=== PATIENT | male | born 1995 | race Caucasian/White ===

== ENCOUNTER 2017-07-30 08:03 | Emergency (ER) | payer SELFPAY ==
--- NOTE | 2017-07-30 08:55 | Emergency Department Record ---
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 chief complaint: Foreign body Onset/Timin -: Hour(s) Onset Description: Sudden Location: Right eye Place: Work If Injury: Occurred while hammering/grinding Eye Symptoms: Pain, Photophobia, Redness Severity scale (1-10): 4 If Pain, Quality: Sharp Consistency: Constant Context: Trauma Treatments Prior to Arrival: Irrigated eye - Related Data Hx Tetanus Toxoid Vaccination: Yes Year of Tetanus Vaccination: 2017 Patient Tetanus UTD (within 5 yrs): Yes Previous Rx's Medication Instructions Recorded Hydrocodone/Acetaminophen [[place] 1 each PO Q6HR #10 tablet 07/30/17 5-325 Tablet] Sulfacetamide Sodium [Bleph10] 1 - 2 drop AFFEYE QID #15 ml 07/30/17 Allergies Allergy/AdvReac Type Severity Reaction Status Date / Time No Known Drug Allergies Allergy Verified 07/30/17 08:13 Travel Screening - Travel/Exposure Within Last 30 Days Have you traveled within the last 30 days?: No - Travel/Exposure Within Last Year Have you traveled outside the [place] in the last year?: No - Additonal Travel Details Have you been exposed to anyone with a communicable illness?: No - Travel Symptoms Symptom Screening: None Review of Systems Reviewed: No additional complaints except as noted below Constitutional: Reports: As per HPI. Denies: Chills, Fever, Malaise, Night sweats, Weakness, Weight change Eyes: Reports: As per HPI. Denies: Eye discharge, Eye pain, Photophobia, Vision change ENT: Reports: As per HPI. Denies: Congestion, Dental pain, Ear pain, Epistaxis , Hearing loss, Throat pain Respiratory: Reports: As per HPI. Denies: Cough, Dyspnea, Hemoptysis, Stridor, Wheezes Cardiovascular: Reports: As per HPI. Denies: Arrhythmia, Chest pain, Dyspnea on exertion, Edema, Murmurs, Orthopnea, Palpitations, Paroxysmal nocturnal dyspnea, Rheumatic Fever, Syncope Endocrine: Reports: As per HPI. Denies: Fatigue, Heat or cold intolerance, Polydipsia, Polyuria Gastrointestinal: Reports: As per HPI. Denies: Abdominal pain, Constipation, Diarrhea, Hematemesis, Hematochezia, Melena, Nausea, Vomiting Genitourinary: Reports: As per HPI. Denies: Dysuria, Frequency, Hematuria, Incontinence, Retention, Testicular pain, Testicular mass, Urgency Musculoskeletal: Reports: As per HPI. Denies: Arthralgia, Back pain, Gout, Joint swelling, Myalgia, Neck pain Skin: Reports: As per HPI. Denies: Bruising, Change in color, Change in hair/ nails, Lesions, Pruritus, Rash Neurological: Reports: As per HPI. Denies: Abnormal gait, Confusion, Headache, Numbness, Paresthesias, Seizure, Tingling, Tremors, Vertigo, Weakness Psychiatric: Reports: As per HPI. Denies: Anxiety, Auditory hallucinations, Depression, Homicidal thoughts, Suicidal thoughts, Visual hallucinations Hematological/Lymphatic: Reports: As per HPI. Denies: Anemia, Blood Clots, Easy bleeding, Easy bruising, Swollen glands Past Medical History - SOCIAL HISTORY Smoking Status: Never smoker Alcohol Use: Occasional Drug Use: Occasional Drug Use Detail:: Marijuana - RESPIRATORY Hx Respiratory Disorders: No - CARDIOVASCULAR Hx Cardio Disorders: No - NEURO Hx Neuro Disorders: No - GI Hx GI Disorders: No - Hx Genitourinary Disorders: No - ENDOCRINE Hx Endocrine Disorders: No - MUSCULOSKELETAL Hx Musculoskeletal Disorders: No - PSYCH Hx Psych Problems: No - HEMATOLOGY/ONCOLOGY Hx Hematology/Oncology Disorders: No Family Medical History Any Significant Family History?: Yes Hx Heart Disease: Father, Grandparents Physical Exam - General General Appearance: Alert, Oriented x3, Cooperative, No acute distress - Head Head exam: Normal inspection - Eye Eye exam: Normal appearance, PERRL, Conjunctival injection, EOMI, Other (metal in the right cornea at the 3 O'clock position with rust ring) Pupils: Normal accommodation Visual acuity (R) = 20/: 20 - ENT ENT exam: Normal exam, Mucous membranes moist, Normal external ear exam, Normal orophraynx, TM's normal bilaterally Ear exam: Normal external inspection. negative: External canal tenderness Nasal Exam: Normal inspection. negative: Discharge, Sinus tenderness Mouth exam: Normal external inspection, Tongue normal Teeth exam: Normal inspection. negative: Dental caries Throat exam: Normal inspection. negative: Tonsillar erythema, Tonsillar exudate - Neck Neck exam: Normal inspection, Full ROM. negative: Tenderness - Respiratory Respiratory exam: Normal lung sounds bilaterally. negative: Respiratory distress - Cardiovascular Cardiovascular Exam: Regular rate, Normal rhythm, Normal heart sounds - GI/Abdominal GI/Abdominal exam: Soft, Normal bowel sounds. negative: Tenderness - Rectal Rectal exam: Deferred - exam: Deferred - Extremities Extremities exam: Normal inspection, Full ROM, Normal capillary refill. negative: Tenderness - Back Back exam: Reports: Normal inspection, Full ROM. Denies: Muscle spasm, Rash noted, Tenderness - Neurological Neurological exam: Alert, Normal gait, Oriented X3, Reflexes normal - Psychiatric Psychiatric exam: Normal affect, Normal mood - Skin Skin exam: Dry, Intact, Normal color, Warm Course Vital Signs 07/30/17 08:14 Temperature 98.1 F Pulse Rate 78 Respiratory 18 Rate Blood Pressure 163/76 Pulse Ox 97 - Reevaluation(s) Reevaluation #1: fluoscein stain no uptake slit lamp exam metal in cornea 3 O'clock position eyelids everted no other FB's alcaine drops and removed FB with opthalmic daniella and rust ring reduced to 99 % 07/30/17 08:59 Disposition Clinical Impression: Foreign body in cornea, right eye, initial encounter Disposition: Home, Self-Care Condition: (1) Good Instructions: Eye Foreign Body (ED) Additional Instructions: follow up with Dr. Patten in 5 days return to ED if things get worse sooner tylenol or motrin for mild pain ,norco for severe pain Prescriptions: Hydrocodone/Acetaminophen [[place] 5-325 Tablet] 1 each PO Q6HR #10 tablet Sulfacetamide Sodium [Bleph10] 1 - 2 drop AFFEYE QID #15 ml Forms: Patient Portal Access Time of Disposition: 09:04 Quality - Quality Measures Quality Measures: N/A - Blood Pressure Screening Does Patient Have Any of the Following: No Blood Pressure Classification: Hypertensive Reading Systolic Measurement: 163 Diastolic Measurement: 76 Screening for High Blood Pressure: < First Hypertensive BP, F/U Documented > [ G8950] First Hypertensive Follow-up Interventions: Referral to alternative/primary care provider.
[2017-07-30] MEDS ORDERED: PROPARACAINE HCL OPTH 15ML BTL OPTH ONE (08:56)
== END 2017-07-30 09:30 | disposition home or self-care (01) ==
LOC: ER 08:03
DX: T15.01XA Foreign body in cornea, right eye, initial encounter (principal); W22.8XXA Striking against or struck by other objects, initial encounter; Y92.63 Factory as the place of occurrence of the external cause; Y99.0 Civilian activity done for income or pay
CPT/HCPCS: 65222; 99283

== ENCOUNTER 2018-12-21 08:48 | Emergency (ER) | payer BC, OTHER ==
--- NOTE | 2018-12-21 09:40 | Emergency Department Record ---
History of Present Illness - General Chief Complaint: Laceration(s) Stated Complaint: FINGER LACERATION Time Seen by Provider: 12/21/18 08:49 Source: Patient, Family Mode of Arrival: Ambulatory Limitations: No limitations - History of Present Illness Initial Commments: 23 yo male presents with an injury to his right index finger. The injury occurred at work. 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 He is up to date in immunizations. No loss of ROM. No numbness or tingling. Onset/Timin -: Minutes(s) Extremity Location: Right: Hand Place: Work Context: Accidental Associated Symptoms: None Treatments Prior to Arrival: Bandage - Hazel Coma Scale Eye Response: (4) Open spontaneously Motor Response: (6) Obeys commands Verbal Response: (5) Oriented [address] Total: 15 - Related Data Hx Tetanus Toxoid Vaccination: Yes Year of Tetanus Vaccination: 2016 Previous Rx's Medication Instructions Recorded Cephalexin [Keflex] 500 mg PO TID #21 cap 12/21/18 Allergies Allergy/AdvReac Type Severity Reaction Status Date / Time No Known Drug Allergies Allergy Verified 07/30/17 08:13 Travel Screening - Travel/Exposure Within Last 30 Days Have you traveled within the last 30 days?: No - Travel/Exposure Within Last Year Have you traveled outside the [place] in the last year?: No - Additonal Travel Details Have you been exposed to anyone with a communicable illness?: No Review of Systems Constitutional: Denies: Chills, Fever Eyes: Denies: Eye discharge, Vision change ENT: Denies: Congestion, Throat pain Respiratory: Denies: Cough Cardiovascular: Denies: Edema, Syncope Endocrine: Denies: Fatigue Gastrointestinal: Denies: Diarrhea, Nausea, Vomiting Genitourinary: Denies: Dysuria Musculoskeletal: Reports: Other. Denies: Arthralgia, Back pain, Myalgia Skin: Reports: Other. Denies: Bruising, Change in color Neurological: Denies: Headache, Numbness, Tingling, Weakness Psychiatric: Denies: Anxiety Hematological/Lymphatic: Denies: Blood Clots, Easy bleeding, Easy bruising Past Medical History - SOCIAL HISTORY Smoking Status: Never smoker Alcohol Use: Occasional Drug Use: None - RESPIRATORY Hx Respiratory Disorders: No - CARDIOVASCULAR Hx Cardio Disorders: No Comment:: heart murmur as child - NEURO Hx Neuro Disorders: No - GI Hx GI Disorders: No - Hx Genitourinary Disorders: No - ENDOCRINE Hx Endocrine Disorders: No - MUSCULOSKELETAL Hx Musculoskeletal Disorders: No - PSYCH Hx Psych Problems: No - HEMATOLOGY/ONCOLOGY Hx Hematology/Oncology Disorders: No Family Medical History Any Significant Family History?: No Hx Heart Disease: Father, Grandparents Physical Exam - General General Appearance: Alert, Oriented x3, Cooperative, No acute distress Limitations: No limitations - Head Head exam: Atraumatic, Normal inspection - Eye Eye exam: Normal appearance. negative: Conjunctival injection - ENT ENT exam: Normal exam Ear exam: Normal external inspection Nasal Exam: Normal inspection Mouth exam: Normal external inspection - Neck Neck exam: Normal inspection - Cardiovascular Cardiovascular Exam: Regular rate, Normal rhythm Peripheral Pulses: 2+: Radial (R) - Rectal Rectal exam: Deferred - exam: Deferred - Extremities Extremities exam: Full ROM, Normal capillary refill, Tenderness. negative: Normal inspection Image of Finger Tip: 1 - nail laceration 2 - 1cm linear laceration - Neurological Neurological exam: Alert, Oriented X3 - Psychiatric Psychiatric exam: Normal affect, Normal mood. negative: Agitated, Anxious - Skin Skin exam: Dry, Normal color, Warm. negative: Cyanosis, Intact Type of lesion: Laceration Course Vital Signs 12/21/18 08:50 Temperature 97.6 F Pulse Rate 89 Respiratory 18 Rate Blood Pressure 162/103 Pulse Ox 97 - Reevaluation(s) Reevaluation #1: 12/21/18 08:59 The wound was soaked and cleaned XR ordered of the digit The XR was reviewed. No fracture or bony injury There are small radio opaque FB very tiny in size We discussed the very tiny metal FB. The wound was again thoroughly cleaned and irrigated. I did see at least one tiny FB come out I did discussed concerns about retained FB and infection but metal is typically lower chance for infection He is aware and agrees with closure at this time. The lateral 10% of the nail was injured and partially avulsed. This was gently removed. The nail bed appeared minimally involved just on the edge and did not require repair Procedure Note 1 cm laceration of the right index finger Sterile prep performed with digital block of Sensorcaine and Lidocaine Plain 3.5ml in a 50:50 mix Wound was cleaned and prepped in sterile fashion, no residual FB identified on examination. The wound was copiously irrigated with NS The laceration was repaired with 4-0 sutures in interrupted fashion. 5 sutures placed Patient tolerated the procedure well without complications. We discussed home care, reasons for immediate return if any concerns, and suture removal in 10 days 12/21/18 Disposition Disposition: Discharge Clinical Impression: Finger laceration, Nail avulsion, finger Disposition: Home, Self-Care Condition: (1) Good Instructions: Laceration (ED) Additional Instructions: Return in 10 days to have the sutures removed Return sooner if you have pain, bleeding, or any concerns for possible infection Gently clean the laceration twice daily Keep clean and covered at work Take the Keflex as directed for one week Prescriptions: Cephalexin [Keflex] 500 mg PO TID #21 cap Forms: Patient Portal Access Time of Disposition: 09:44 Quality - Quality Measures Quality Measures: N/A - Blood Pressure Screening Does Patient Have Any of the Following: No Blood Pressure Classification: Hypertensive Reading Systolic Measurement: 162 Diastolic Measurement: 103 Screening for High Blood Pressure: < Pre-Hypertensive BP, F/U Documented > [ G8950] Pre-Hypertensive Follow-up Interventions: Referral to alternative/primary care provider.
[2018-12-21] MEDS ORDERED: CEPHALEXIN 500 MG CAPSULE PO STA (10:00)
[2018-12-21 10:51] LABS: PHENCYCLIDINE SCREEN URINE NOT DETECTED
[2018-12-21 11:07] LABS: COCAINE SCREEN URINE DETECTED
[2018-12-21 11:08] LABS: THC SCREEN URINE DETECTED
[2018-12-21 11:09] LABS: AMPHETAMINE SCREEN URINE NOT DETECTED; OPIATE SCREEN URINE NOT DETECTED
--- NOTE | 2018-12-23 10:20 | RADIOLOGY REPORT ---
EXAM: RIGHT SECOND FINGER HISTORY: LACERATION TO DISTAL ASPECT OF SECOND FINGER (BAND SAW). TECHNIQUE: Three views of the right second finger were obtained. Comparison: None. Encounter: Initial. FINDINGS: There is normal bone mineralization. No fracture, dislocation, or destructive bone lesion is seen. The articular relations are maintained. There is linear lucency involving the lateral soft tissues of the distal aspect of the second finger consistent with history of laceration. There are a couple tiny hyperdensities in this region which may represent foreign bodies. The linear density measures 1 mm in length. The other density is punctate measuring 0.2 mm. IMPRESSION: 1. NO ACUTE BONE NOR JOINT ABNORMALITY. 2. LACERATION TO THE LATERAL DISTAL ASPECT OF THE RIGHT SECOND FINGER. THERE ARE A COUPLE HYPERDENSITIES AT THE LEVEL OF THE LACERATION SUSPICIOUS FOR FOREIGN BODY. JOB NUMBER: [id number] MTDD
== END 2018-12-21 10:06 | disposition home or self-care (01) ==
LOC: ER 08:48
DX: S61.310A Laceration without foreign body of right index finger with damage to nail, initial encounter (principal); W31.2XXA Contact with powered woodworking and forming machines, initial encounter; Y92.69 Other specified industrial and construction area as the place of occurrence of the external cause; Y99.0 Civilian activity done for income or pay
CPT/HCPCS: 12041; 73140; 80305; 99283; 99284

== ENCOUNTER 2018-12-31 15:16 | Emergency (ER) | payer SELFPAY ==
--- NOTE | 2018-12-31 15:38 | Emergency Department Record ---
History of Present Illness - General Chief Complaint: Suture removal Stated Complaint: REMOVE STITCHES Time Seen by Provider: 12/31/18 15:18 Source: Patient Mode of arrival: Ambulatory Limitations: No limitations - History of Present Illness Initial Comments: The patient is here for suture removal. He denies any problems. Complaint: Suture/staple removal Onset/Timin -: Days(s) Initial Visit For: Laceration Returns Today for: Staple/stitch removal Symptoms Since Prior Visit: No new symptoms, Improved Associated Symptoms: None - Related Data Home Medications Medication Instructions Recorded Confirmed Last Taken No Home Med [NO HOME MEDS] 12/31/18 12/31/18 Unknown Allergies Allergy/AdvReac Type Severity Reaction Status Date / Time No Known Drug Allergies Allergy Verified 12/31/18 15:31 Travel Screening - Travel/Exposure Within Last 30 Days Have you traveled within the last 30 days?: No - Travel/Exposure Within Last Year Have you traveled outside the [place] in the last year?: No - Additonal Travel Details Have you been exposed to anyone with a communicable illness?: No - Travel Symptoms Symptom Screening: None Past Medical History - SOCIAL HISTORY Smoking Status: Never smoker Alcohol Use: None Drug Use: None - RESPIRATORY Hx Respiratory Disorders: No - CARDIOVASCULAR Hx Cardio Disorders: No Comment:: heart murmur as child - NEURO Hx Neuro Disorders: No - GI Hx GI Disorders: No - Hx Genitourinary Disorders: No - ENDOCRINE Hx Endocrine Disorders: No - MUSCULOSKELETAL Hx Musculoskeletal Disorders: No - PSYCH Hx Psych Problems: No - HEMATOLOGY/ONCOLOGY Hx Hematology/Oncology Disorders: No Family Medical History Any Significant Family History?: Yes Hx Heart Disease: Father, Grandparents Physical Exam - General General Appearance: Alert, Cooperative - Extremities Extremities exam: negative: Normal inspection (The R 2nd finger sutures were removed without difficulty.) Disposition Disposition: Discharge Clinical Impression: Encounter for removal of sutures Disposition: Home, Self-Care Condition: (2) Stable Instructions: Stitches Removal (ED) Additional Instructions: Please return to the ER for any problems. Forms: Patient Portal Access Time of Disposition: 15:38 Quality - Quality Measures Quality Measures: N/A - Blood Pressure Screening View Details: Yes Does Patient Have Any of the Following: No Blood Pressure Classification: Pre-Hypertensive BP Reading Systolic Measurement: 143 Diastolic Measurement: 86 Screening for High Blood Pressure: < Pre-Hypertensive BP, F/U Documented > [ G8950] Pre-Hypertensive Follow-up Interventions: Referral to alternative/primary care provider.
== END 2018-12-31 15:47 | disposition home or self-care (01) ==
LOC: ER 15:16
DX: Z48.02 Encounter for removal of sutures (principal)

== ENCOUNTER 2019-01-12 19:53 | Emergency (ER) | payer BC ==
[2019-01-12] MEDS ORDERED: PROPARACAINE HCL OPTH 15ML BTL OPTH ONE (20:01)
[2019-01-12] MEDS: PROPARACAINE HCL OPTH 15ML BTL OPTH ONE (20:05)
--- NOTE | 2019-01-12 20:11 | Emergency Department Record ---
History of Present Illness - General Chief complaint: Eye Problem Stated complaint: FOREIGN BODY IN EYE Time Seen by Provider: 01/12/19 20:00 Source: Patient Mode of Arrival: Ambulatory Limitations: No limitations - History of Present Illness Initial comments: 23 yo male presents to ED for evaluation of FB to the right eye this evening. 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 Patient denies pain or photophobia, reports the sensation of "itching". Patient denies change in vision. Patient denies health problems at his baseline. chief complaint: Eye redness, Foreign body Onset/Timin -: Hour(s) Onset Description: Gradual Location: Right eye Place: Work If Injury: Occurred while hammering/grinding Eye Symptoms: Foreign body sensation Severity: Mild Consistency: Constant Associated Symptoms: None Treatments Prior to Arrival: None - Related Data Visual acuity (L) = 20/: 30 Visual acuity (R) = 20/: 30 Hx Tetanus Toxoid Vaccination: Yes Year of Tetanus Vaccination: 2016 Allergies Allergy/AdvReac Type Severity Reaction Status Date / Time No Known Drug Allergies Allergy Verified 01/12/19 20:02 Review of Systems Constitutional: Denies: Chills, Fever, Malaise, Night sweats Eyes: Reports: Other (FB sensation right eye). Denies: Eye discharge, Eye pain , Photophobia ENT: Denies: Congestion, Ear pain, Epistaxis Respiratory: Denies: Cough, Dyspnea Cardiovascular: Denies: Chest pain, Dyspnea on exertion Gastrointestinal: Denies: Abdominal pain, Nausea, Vomiting Genitourinary: Denies: Incontinence, Retention Musculoskeletal: Denies: Arthralgia, Back pain, Gout, Joint swelling Skin: Denies: Bruising, Change in color Neurological: Denies: Abnormal gait, Confusion, Headache, Seizure Psychiatric: Denies: Anxiety Hematological/Lymphatic: Denies: Anemia, Blood Clots Past Medical History - SOCIAL HISTORY Smoking Status: Never smoker Drug Use: None - RESPIRATORY Hx Respiratory Disorders: No - CARDIOVASCULAR Hx Cardio Disorders: No Comment:: heart murmur as child - NEURO Hx Neuro Disorders: No - GI Hx GI Disorders: No - Hx Genitourinary Disorders: No - ENDOCRINE Hx Endocrine Disorders: No - MUSCULOSKELETAL Hx Musculoskeletal Disorders: No - PSYCH Hx Psych Problems: No - HEMATOLOGY/ONCOLOGY Hx Hematology/Oncology Disorders: No Family Medical History Hx Heart Disease: Father, Grandparents Physical Exam - General General Appearance: Alert, Oriented x3, Cooperative, Mild distress Limitations: No limitations - Head Head exam: Atraumatic, Normocephalic, Normal inspection Head exam detail: negative: Abrasion, Contusion, Almeida's sign, General tenderness, Hematoma, Laceration - Eye Eye exam: Other (Very mild injection to the sclera of the right eye medially). negative: Periorbital swelling, Periorbital tenderness, Scleral icterus - ENT Ear exam: negative: Auricular hematoma, Auricular trauma Nasal Exam: negative: Active bleeding, Discharge, Dried blood, Foreign body Mouth exam: negative: Drooling, Laceration, Muffled voice, Tongue elevation - Neck Neck exam: Normal inspection. negative: Meningismus, Tenderness - Respiratory Respiratory exam: Normal lung sounds bilaterally. negative: Rales, Respiratory distress, Rhonchi, Stridor - Cardiovascular Cardiovascular Exam: Regular rate, Normal rhythm, Normal heart sounds - GI/Abdominal GI/Abdominal exam: Soft. negative: Rebound, Rigid, Tenderness - Rectal Rectal exam: Deferred - exam: Deferred - Extremities Extremities exam: Normal inspection. negative: Pedal edema, Tenderness - Back Back exam: Denies: CVA tenderness (R), CVA tenderness (L) - Neurological Neurological exam: Alert, Normal gait, Oriented X3 - Psychiatric Psychiatric exam: Normal affect, Normal mood - Skin Skin exam: Normal color. negative: Abrasion Type of lesion: negative: abrasion Course Vital Signs 01/12/19 20:01 Temperature 98.2 F Pulse Rate [ 65 Pulse Ox Probe] Respiratory 20 Rate Blood Pressure 139/87 [Left Arm] Pulse Ox 97 - Reevaluation(s) Reevaluation #1: 01/12/19 20:15 Eye examination: Small are of scleral injection medially Small radio-opaque at the 3:00 o'clock position, no other abrasion noted. VA was reviewed: 20/30 bilaterally without his corrective lenses. Radio-opaque FB was removed with moist Q-Tip without complications. Patient was started on Gentamicin ophthalmic drops with instructions for follow- up with Dr. Osman as needed in 1-3 days. Disposition Disposition: Discharge Clinical Impression: Corneal foreign body Qualifiers: Encounter type: initial encounter Laterality: right Qualified Code(s): T15.01XA - Foreign body in cornea, right eye, initial encounter Disposition: Home, Self-Care Condition: (2) Stable Instructions: Eye Foreign Body (ED) Additional Instructions: Return to ED if your symptoms worsen or if you have any concerns. Gentamycin 1-2 drops q4 hours as directed. Follow-up with Dr. Osman in 3-5 days if needed. Referrals: MAXIMILIAN OSMAN [MEDICAL DOCTOR] - Forms: Patient Portal Access Time of Disposition: 20:10 Quality - Quality Measures Quality Measures: N/A - Blood Pressure Screening Does Patient Have Any of the Following: No Blood Pressure Classification: Pre-Hypertensive BP Reading Systolic Measurement: 139 Diastolic Measurement: 87 Screening for High Blood Pressure: < Pre-Hypertensive BP, F/U Documented > [ G8950] Pre-Hypertensive Follow-up Interventions: Referral to alternative/primary care provider.
[2019-01-12] MEDS: GENTAMICIN SULFATE 0.3% OPTH 5 ML BTL OPTH ONE (20:19)
== END 2019-01-12 20:22 | disposition home or self-care (01) ==
LOC: ER 19:53
DX: T15.01XA Foreign body in cornea, right eye, initial encounter (principal); W22.8XXA Striking against or struck by other objects, initial encounter; Y92.89 Other specified places as the place of occurrence of the external cause; Y99.0 Civilian activity done for income or pay
CPT/HCPCS: 65205; 99283; 99284